=== PATIENT | male | born 1960 | race Caucasian/White ===

== ENCOUNTER 2021-06-06 14:33 | Inpatient (IN) | payer OTHER ==
[~2021-06-06] VITALS: Ht 182.9 cm; Wt 106.0 kg
[~2021-06-06 14:33] MED LIST: BUPR100T8 PO; CETI10TA74 PO; CRESTOR20 MG PO; LISI20TA18 PO
[2021-06-06 15:28] VITALS: BP 146/77
[2021-06-06 16:44] LABS: BILIRUBIN,URINE NEGATIVE (NEG); CLARITY,URINE CLEAR; COLOR,URINE YELLOW; NITRITE,URINE NEGATIVE (NEG); PROTEIN,URINE 30 mg/dL (NEG-TRACE); UROBILINOGEN,URINE 0.2 mg/dL (0.2 mg/dL)
[2021-06-06 16:53] LABS: BACTERIA,URINE 0 /HPF (0-FEW); RBC,URINE 0 /HPF (0-2)
[2021-06-06] MEDS ORDERED: guaiFENesin DM 200MG/20MG 10 ML SYRUP PO PRN (17:15)
[2021-06-06] MEDS ORDERED: ONDANSETRON PF 4 MG/2 ML VIAL. IVP PRN (17:15)
[2021-06-06] MEDS ORDERED: traMADol 50 MG TABLET PO PRN (17:15)
[2021-06-06] MEDS ORDERED: GLUC100018 PO (17:35)
[2021-06-06] MEDS ORDERED: MULT-246 PO (17:39)
[2021-06-06] MEDS ORDERED: tumeric PO (17:39)
[2021-06-06] MEDS ORDERED: MECL12.582 PO (17:39)
[2021-06-06] MEDS ORDERED: OMEG1CAP38 PO (17:39)
[2021-06-06] MEDS: ACETAMINOPHEN 325 MG TABLET. PO PRN (18:12)
[2021-06-06] MEDS ORDERED: IV NORMAL SALINE 1000ML BAG 1,000 ML IV ONE ×2 (18:15)
[2021-06-06 18:19] LABS: BASO % 0 % (0-3); EOS % 0 % (0-3); HEMATOCRIT 39.7 % (39.0-53.0); HEMOGLOBIN 13.3 g/dL (13.0-17.5); LYMPH # 0.6 x10^3/uL (1.0-4.8); LYMPH % 5 % (24-48); MEAN CORPUSCULAR HEMOGLOBIN 30 pg (25-35); MEAN CORPUSCULAR HGB CONC 34 g/dL (31-37); MEAN CORPUSCULAR VOLUME 88 fL (79-100); MONO # 0.9 x10^3/uL (0.0-1.1); MONO % 7 % (0-9); NEUT # 10.7 x10^3/uL (1.8-7.7); NEUT % 88 % (31-73); PLATELET COUNT 219 x10^3/uL (140-400); RED BLOOD COUNT 4.51 x10^6/uL (4.30-5.70); RED CELL DISTRIBUTION WIDTH 13.1 % (11.5-14.5); WHITE BLOOD COUNT 12.2 x10^3/uL (4.0-11.0)
[2021-06-06 18:30] LABS: ALBUMIN 3.5 g/dL (3.4-5.0); ALBUMIN/GLOBULIN RATIO 0.9 (1.0-1.7); C-REACTIVE PROTEIN 164.8 mg/L (0-3.3); CALCIUM 8.5 mg/dL (8.5-10.1); CREATININE 1.1 mg/dL (0.7-1.3); GFR 68.8; POTASSIUM 4.1 mmol/L (3.5-5.1); TOTAL BILIRUBIN 0.5 mg/dL (0.2-1.0); TOTAL PROTEIN 7.6 g/dL (6.4-8.2)
--- NOTE | 2021-06-06 18:33 | PDOC1 ---
History and Physical Date of Admission Date of Admission DATE: 06/06/21 TIME: 18:01 Identification/Chief Complaint Chief Complaint Fevers, positive blood cultures Source Source: Patient History of Present Illness History of Present Illness Mr Swartz is a 60 yo male with PMHx OA, HTN, HLD, BPH, prior nephrolithiasis who comes as a direct admit for fevers and positive blood cultures. Patient awoke on 06/05/2021 with a headache and fever and chills and dysuria and urinary frequency and contacted his primary care physician Dr. Harper and came to the office was found with a fever of 101.4 F and had 2 separate blood cultures and urinalysis drawn urinalysis was abnormal with positive leukoesterase. Patient was given a shot of intramuscular Rocephin and instructed to take Tylenol and return to the office for an additional shot of Rocephin 06/06/21, but in the intervening time blood cultures returned positive 2 out of 3 bottles each set of culture positive for gram-positive cocci. Patient did still have a fever of 101.1 F today. On initial evaluation in the hospital his temperature is 100.6 F and he does have some chills. Prostate is enlarged on exam but not painful. He further notes that he does have an intermittent headache and some nasal drainage. No shortness of breath or chest pain. No recent travel no recent sick contacts. 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 Lives at home with his 3 dogs, a "few" cats, a bearded dragon, and rabbits. Does not smoke drink or use illicit drugs. Notes that he is fully vaccinated against COVID-19 and has had his booster. He notes that prior to his episode of fever and chills on 06/05/2021 he was having increased urinary frequency his also notes this. Over the last 6 years he has had 2 ED for urinary tract infections and has been treated outpatient twice by urology for urinary tract infections and treated for nephrolithiasis. Past Medical History Cardiovascular: HTN, Hyperlipidemia Renal/: Benign prostatic enlarg. Past Surgical History Past Surgical History surgery 4th and 5th fingers right hand Past Surgical History: Arthroscopy (Bilateral shoulder, bilateral knees), Tonsillectomy (1966), Other (Cystoscopy) Family History Family History: Hypertension Social History Smoke: No ALCOHOL: none Drugs: None Current Medications Current Medications Current Medications Acetaminophen (Tylenol) 650 mg PRN Q6HRS PRN PO MILD PAIN / TEMP > 100.3'F; Start 06/06/21 at 17:15 Ondansetron HCl (Zofran) 4 mg PRN Q4HRS PRN IVP NAUSEA/VOMITING; Start 06/06/21 at 17:15 Guaifenesin (Robitussin Dm) 10 ml PRN Q6HRS PRN PO COUGH; Start 06/06/21 at 17:15 Tramadol HCl (Ultram) 50 mg PRN Q6HRS PRN PO PAIN; Start 06/06/21 at 17:15 Bupropion HCl (Wellbutrin Sr) 100 mg DAILYWBKFT PO ; Start 06/07/21 at 08:00 Cetirizine HCl (ZyrTEC) 10 mg DAILY PO ; Start 06/07/21 at 09:00 Lisinopril (Prinivil) 20 mg DAILY PO ; Start 06/07/21 at 09:00 Atorvastatin Calcium (Lipitor) 80 mg QHS PO ; Start 06/06/21 at 21:00 Zolpidem Tartrate (Ambien) 5 mg PRN QHS PRN PO INSOMNIA; Start 06/06/21 at 18:00; Status UNV Active Scripts Active Reported [tumeric] Unknown Dose PO DAILY Meclizine Hcl 12.5 Mg Tablet 1 Tab PO DAILY Multi-Vitamin Daily (Multivitamin) 1 Each Tablet 1 Tab PO DAILY 30 Days [place] 3 Fish Oil Softgel ([place]-3 Fatty Acids/Fish Oil) 1 Each Capsule.dr 1 Each PO DAILY Glucosamine (Glucosamine Sulfate 2KCL) 1,000 Mg Tablet 1,000 Mg PO DAILY Bupropion Hcl Sr (Bupropion Hcl) 100 Mg Tablet.er 1 Tab PO DAILYWBKFT Zyrtec (Cetirizine Hcl) 10 Mg Tablet 1 Tab PO DAILY Crestor (Rosuvastatin Calcium) 20 Mg Tablet 1 Tab PO DAILY Lisinopril 20 Mg Tablet 1 Tab PO DAILY Allergies Allergies: Coded Allergies: No Known Drug Allergies (Unverified , 04/04/15) ROS General: YES: Chills, Night Sweats, Fatigue, Malaise; No: Appetite, Other PSYCHOLOGICAL ROS: YES: Anxiety; No: Behavioral Disorder, Concentration difficultie, Decreased libido, Depression, Disorientation, Hallucinations, Hostility, Irritablity, Memory difficulties, Mood Swings, Obsessive thoughts, Physical abuse, Sexual abuse, Sleep disturbances, Suicidal ideation, Other Eyes: No Blurry vision, No Decreased vision, No Double vision, No Dry eyes, No Excessive tearing, No Eye Pain, No Itchy Eyes, No Loss of vision, No Photophobia, No Scotomata, No Uses contacts, No Uses glasses, No Other HEENT: YES: Heacaches; No: Visual Changes, Hearing change, Nasal congestion, Nasal discharge, Oral lesions, Sinus pain, Sore Throat, Epistaxis, Sneezing, Snoring, Tinnitus, Vertigo, Vocal changes, Other ALLERGY AND IMMUNOLOGY: No: Hives, Insect Bite Sensitivity, Itchy/Watery Eyes, Nasal Congestion, Post Nasal Drip, Seasonal Allergies, Other Hematological and Lymphatic: No: Bleeding Problems, Blood Clots, Blood T ransfusions, Brusing, Night Sweats, Pallor, Swollen Lymph Nodes, Other ENDOCRINE: No: Breast Changes, Galactorrhea, Hair Pattern Changes, Hot Flashes, Malaise/lethargy, Mood Swings, Palpitations, Polydipsia/polyuria, Skin Changes, Temperature Intolerance, Unexpected Weight Changes, Other Breast: No New/Changing Breast Lumps, No Nipple changes, No Nipple discharge, No Other Respiratory: No: Cough, Hemoptysis, Orthopnea, Pleuritic Pain, Shortness of breath, SOB with excertion, Sputum Changes, Stridor, Tachypnea, Wheezing, Other Gastrointestinal: Yes Nausea; No Vomiting, No Abdominal Pain, No Diarrhea, No Constipation, No Melena, No Hematochezia, No Other Genitourinary: YES Dysuria, YES Frequency; No Incontinence, No Hematuria, No Retention, No Discharge, No Urgency, No Pain, No Flank Pain, No Other, No , No , No , No , No , No , No Musculoskeletal: No Gait Disturbance, No Joint Pain, No Joint Stiffness, No Joint Swelling, No Muscle Pain, No Muscular Weakness, No Pain In:, No Swelling In:, No Other Neurological: No Behavorial Changes, No Bowel/Bladder ControlChng, No Confusion, No Dizziness, No Gait Disturbance, No Headaches, No Impaired Coord/balance, No Memory Loss, No Numbness/Tingling, No Seizures, No Speech Problems, No Tremors, No Visual Changes, No Weakness, No Other Skin: No Dry Skin, No Eczema, No Hair Changes, No Lumps, No Mole Changes, No Mottling, No Nail Changes, No Pruritus, No Rash, No Skin Lesion Changes, No Other, No Acne Physical Exam General: Alert, Oriented X3, Cooperative, mild distress HEENT: Atraumatic, PERRLA, EOMI, Mucous membr. moist/pink Lungs: Clear to auscultation, Normal air movement Heart: S1S2, RRR, no thrills, no rubs, no gallops, no murmurs Abdomen: Normal bowel sounds, Soft, No hepatosplenomegaly, No masses, Other (suprapubic tenderness) Male Genitals Exam: high riding prostate Extremities: No clubbing, No cyanosis, No edema, Normal pulses, No tenderness/swelling Skin: No rashes, No breakdown, No significant lesion Neuro: Normal gait, Normal speech, Strength at 5/5 X4 ext, Normal tone, Sensation intact, Cranial nerves 3-12 NL, Reflexes 2+ Psych/Mental Status: Mental status NL, Mood NL Vitals Vitals Vital Signs Date Time Temp Pulse Resp B/P (MAP) Pulse Ox O2 Delivery O2 Flow Rate FiO2 06/06/21 16:33 100.6 100.6 06/06/21 16:09 Room Air 06/06/21 15:28 95 16 146/77 (100) 98 Labs Labs Laboratory Tests Test 06/06/21 16:00 Urine Collection Type Unknown Urine Color Yellow Urine Clarity Clear Urine pH 6.0 (<5.0-8.0) Urine Specific [place] 1.015 (1.000-1.030) Urine Protein 30 mg/dL (NEG-TRACE) Urine Glucose (UA) Negative mg/dL (NEG) Urine Ketones (Stick) Negative mg/dL (NEG) Urine Blood Negative (NEG) Urine Nitrite Negative (NEG) Urine Bilirubin Negative (NEG) Urine Urobilinogen Dipstick 0.2 mg/dL (0.2 mg/dL) Urine Leukocyte Esterase Negative (NEG) Urine RBC 0 /HPF (0-2) Urine WBC 1-4 /HPF (0-4) Urine Bacteria 0 /HPF (0-FEW) Urine Mucus Slight /LPF Laboratory Tests Test 06/06/21 16:00 Urine Collection Type Unknown Urine Color Yellow Urine Clarity Clear Urine pH 6.0 (<5.0-8.0) Urine Specific [place] 1.015 (1.000-1.030) Urine Protein 30 mg/dL (NEG-TRACE) Urine Glucose (UA) Negative mg/dL (NEG) Urine Ketones (Stick) Negative mg/dL (NEG) Urine Blood Negative (NEG) Urine Nitrite Negative (NEG) Urine Bilirubin Negative (NEG) Urine Urobilinogen Dipstick 0.2 mg/dL (0.2 mg/dL) Urine Leukocyte Esterase Negative (NEG) Urine RBC 0 /HPF (0-2) Urine WBC 1-4 /HPF (0-4) Urine Bacteria 0 /HPF (0-FEW) Urine Mucus Slight /LPF VTE Prophylaxis Ordered VTE Prophylaxis Devices: No VTE Pharmacological Prophylaxi: Yes Assessment/Plan Assessment/Plan Gram positive bacteremia - Repeat BC, UA/cs. He already had IM rocephin may not still be positive. Consult ID for recs. F/u results from Dr. Harper , F: [id number] Sepsis - with fever and tachycardia, normotensive, will give weight based fluid bolus, empiric antibiotics. Given GPC on blood cultures and likely urine source this may be enterococcus. Dysuria - BPH meds, fluids. repeat ua/culture, f/u outpatient culture results. Will obtain creatinine and then CT abdomen/pelvis Headaches - with sinus drainage, will r/o COVID 19 with PCR, likely related to sepsis OA - prn tylenol HTN - cont lisinopril HLD - cont crestor, new med BPH - on no outpatient meds Prior nephrolithiasis - none recently FEN - regular diet PPX - lovenox FULL CODE Dispo - inpatient for bacteremia Justifications for Admission Other Justification MARQUIS MACDONALD MD Jun 06, 2021 18:33
[2021-06-06 19:00] VITALS: BP 119/68
[2021-06-06] MEDS ORDERED: VANCOMYCIN 1.75 GM in IV NORMAL SALINE 500ML BAG 500 ML IV ONE (19:00)
[2021-06-06] MEDS ORDERED: cefTRIAXone IV Push 1 GM VIAL. IVP ONE (19:00)
[2021-06-06] MEDS: ATORVASTATIN CALCIUM 40 MG TABLET. PO SCH (21:06)
[2021-06-06] MEDS: TAMSULOSIN 0.4 MG CAP.ER.24H. PO SCH (21:06)
[2021-06-06 23:00] VITALS: BP 127/63
[2021-06-07 03:00] VITALS: BP 108/66
[2021-06-07] MEDS: ACETAMINOPHEN 325 MG TABLET. PO PRN ×3 (03:21→21:39)
[2021-06-07 07:00] VITALS: BP 131/60
[2021-06-07] MEDS ORDERED: buPROPion SR 100 MG TABLET.SA. PO SCH (08:00)
[2021-06-07] MEDS ORDERED: CONTRAST GIVEN. MC PRN (08:15)
[2021-06-07] MEDS ORDERED: IOHEXOL 300 MG/ML 100ML VIAL. IV ONE (08:15)
[2021-06-07] MEDS: CETIRIZINE HCL 10 MG TABLET. PO SCH (10:11)
[2021-06-07] MEDS: LISINOPRIL 20 MG TABLET PO SCH (10:12)
[2021-06-07 10:20] VITALS: BP 117/64
--- NOTE | 2021-06-07 10:49 | NUR ---
SW following. Discussed with RN, pt from home, room air, regular diet. ID following. RN advised no SW needs at this time. SW will continue to follow.
--- NOTE | 2021-06-07 12:17 | RAD ---
EXAM: CT Abdomen and Pelvis with IV contrast CLINICAL HISTORY: Reason: Fever,chills, dysuria, suprapubic pain, concern for intrabdominal infection COMPARISON: none TECHNIQUE: Helical CT of the abdomen and pelvis was performed following the administration of intrave nous contrast. Axial, coronal and sagittal reformatted images were generated. PQRS compliance statement - One or more of the following individualized dose reduction techniques wer e utilized for this study: 1. Automated exposure control 2. Adjustment of the mA and/or kV according to patient size 3. Use of iterative reconstruction technique FINDINGS: Lower Chest: Linear and bandlike opacities lower lobes likely scarring/atelectasis. Abdomen and Pelvis: Hypodense hepatic dome lesion is again seen measuring 1.9 cm previously 2.5 cm. Hepatomegaly. Hepatic hypoattenuation of the liver. Gallbladder is normal. No biliary dilatation. Pancreas, spleen and adr enal glands are unremarkable. Symmetric nephrograms. Subcentimeter hypodense right interpolar and right upper pole renal lesion too small to accurately characterize. No hydronephrosis. No hydroureter. There is infiltration about the bladder and prostate with edematous appearance of the prostate. Moderate colonic stool content is seen. Appendix is normal. No small or large bowel dilatation. No ankur wel obstruction. Aorta is normal in caliber. No abdominal or pelvic ascites. No abdominal or pelvic lymphadenopathy. Bones: Hip joint degenerative changes are seen. Degenerative changes of spine are seen. IMPRESSION: 1. Edematous appearance of the prostate with associated infiltration of the prostate and bladder, co nsistent with prostatitis and cystitis. 2. Appendix is normal. 3. No bowel obstruction. 4. Hepatic dome lesion has mildly decreased in size, can be correlated with more recent prior imagin g if available. If further characterization is required MRI would provide additional details. 5. Hepatomegaly. Hepatic hypoattenuation, fatty liver. Electronically signed by: Fahad Enriquez MD (06/07/2021 12:15 PM) [id number]
--- NOTE | 2021-06-07 14:00 | PDOC ---
[employer] PROGRESS NOTE Date of Service DOS: DATE: 06/07/21 TIME: 13:58 Chief Complaint Chief Complaint Gram positive bacteremia - Repeat BC, UA/cs. He already had IM rocephin may not still be positive. Consult ID for recs. F/u results from Dr. Harper , F: [id number] Sepsis - with fever and tachycardia, normotensive, will give weight based fluid bolus, empiric antibiotics. Given GPC on blood cultures and likely urine source this may be enterococcus. Dysuria - BPH meds, fluids. repeat ua/culture, f/u outpatient culture results. Will obtain creatinine and then CT abdomen/pelvis Headaches - with sinus drainage, will r/o COVID 19 with PCR, likely related to sepsis OA - prn tylenol HTN - cont lisinopril HLD - cont crestor, new med BPH - on no outpatient meds Prior nephrolithiasis - none recently FEN - regular diet PPX - lovenox FULL CODE Dispo - inpatient for bacteremia History of Present Illness History of Present Illness Mr Swartz is a 60 yo male with PMHx OA, HTN, HLD, BPH, prior nephrolithiasis who comes as a direct admit for fevers and positive blood cultures. Patient awoke on 06/05/2021 with a headache and fever and chills and dysuria and urinary frequency and contacted his primary care physician Dr. Harper and came to the office was found with a fever of 101.4 F and had 2 separate blood cultures and urinalysis drawn urinalysis was abnormal with positive leukoesterase. Patient was given a shot of intramuscular Rocephin and instructed to take Tylenol and return to the office for an additional shot of Rocephin 06/06/21, but in the intervening time blood cultures returned positive 2 out of 3 bottles each set of culture positive for gram-positive cocci. Patient did still have a fever of 101.1 F today. On initial evaluation in the hospital his temperature is 100.6 F and he does have some chills. Prostate is enlarged on exam but not painful. He further notes that he does have an intermittent headache and some nasal drainage. No shortness of breath or chest pain. No recent travel no recent sick contacts. 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 Lives at home with his 3 dogs, a "few" cats, a bearded dragon, and rabbits. Does not smoke drink or use illicit drugs. Notes that he is fully vaccinated against COVID-19 and has had his booster. He notes that prior to his episode of fever and chills on 06/05/2021 he was having increased urinary frequency his also notes this. Over the last 6 years he has had 2 ED for urinary tract infections and has been treated outpatient twice by urology for urinary tract infections and treated for nephrolithiasis. CT of the pelvis with some hepatomegaly, and edematous appearance of the prostate with associated infiltration of the prostate and bladder, consistent with prostatitis and cystitis. 06/07: Fever curve improved. Urinated a lot overnight after IV fluids. Did not sleep well. Currently he still having some dysuria. No chest pain or shortness of breath. Consulted with infectious disease. Vitals/I&O Vitals/I&O: Vital Signs Date Time Temp Pulse Resp B/P (MAP) Pulse Ox O2 Delivery O2 Flow Rate FiO2 06/07/21 10:20 98.0 83 18 117/64 (81) 92 Room Air 98.0 I & O 06/06/21 06/06/21 06/07/21 15:00 23:00 07:00 Intake Total 120 ml 240 ml Output Total 300 ml 600 ml Balance -180 ml -360 ml Physical Exam General: Alert, Oriented X3, Cooperative, mild distress Abdomen: Normal bowel sounds, Soft, No hepatosplenomegaly, No masses, Other (suprapubic tenderness) Extremities: No clubbing, No cyanosis, No edema, Normal pulses, No tendernes s/swelling Skin: No rashes, No breakdown, No significant lesion Labs Labs: Laboratory Tests Test 06/06/21 16:00 06/06/21 18:00 Urine Collection Type Unknown Urine Color Yellow Urine Clarity Clear Urine pH 6.0 (<5.0-8.0) Urine Specific [place] 1.015 (1.000-1.030) Urine Protein 30 mg/dL (NEG-TRACE) Urine Glucose (UA) Negative mg/dL (NEG) Urine Ketones (Stick) Negative mg/dL (NEG) Urine Blood Negative (NEG) Urine Nitrite Negative (NEG) Urine Bilirubin Negative (NEG) Urine Urobilinogen Dipstick 0.2 mg/dL (0.2 mg/dL) Urine Leukocyte Esterase Negative (NEG) Urine RBC 0 /HPF (0-2) Urine WBC 1-4 /HPF (0-4) Urine Bacteria 0 /HPF (0-FEW) Urine Mucus Slight /LPF White Blood Count 12.2 x10^3/uL (4.0-11.0) Red Blood Count 4.51 x10^6/uL (4.30-5.70) Hemoglobin 13.3 g/dL (13.0-17.5) Hematocrit 39.7 % (39.0-53.0) Mean Corpuscular Volume 88 fL (79-100) Mean Corpuscular Hemoglobin 30 pg (25-35) Mean Corpuscular Hemoglobin Concent 34 g/dL (31-37) Red Cell Distribution Width 13.1 % (11.5-14.5) Platelet Count 219 x10^3/uL (140-400) Neutrophils (%) (Auto) 88 % (31-73) Lymphocytes (%) (Auto) 5 % (24-48) Monocytes (%) (Auto) 7 % (0-9) Eosinophils (%) (Auto) 0 % (0-3) Basophils (%) (Auto) 0 % (0-3) Neutrophils # (Auto) 10.7 x10^3/uL (1.8-7.7) Lymphocytes # (Auto) 0.6 x10^3/uL (1.0-4.8) Monocytes # (Auto) 0.9 x10^3/uL (0.0-1.1) Eosinophils # (Auto) 0.0 x10^3/uL (0.0-0.7) Basophils # (Auto) 0.0 x10^3/uL (0.0-0.2) Erythrocyte Sedimentation Rate 34 (0-15) Sodium Level 138 mmol/L (136-145) Potassium Level 4.1 mmol/L (3.5-5.1) Chloride Level 98 mmol/L (98-107) Carbon Dioxide Level 27 mmol/L (21-32) Anion Gap 13 (6-14) Blood Urea Nitrogen 13 mg/dL (8-26) Creatinine 1.1 mg/dL (0.7-1.3) Estimated GFR (Cockcroft-Gault) 68.8 BUN/Creatinine Ratio 12 (6-20) Glucose Level 127 mg/dL (70-99) Calcium Level 8.5 mg/dL (8.5-10.1) Total Bilirubin 0.5 mg/dL (0.2-1.0) Aspartate Amino Transf (AST/SGOT) 28 U/L (15-37) Alanine Aminotransferase (ALT/SGPT) 32 U/L (16-63) Alkaline Phosphatase 128 U/L (46-116) C-Reactive Protein, Quantitative 164.8 mg/L (0-3.3) Total Protein 7.6 g/dL (6.4-8.2) Albumin 3.5 g/dL (3.4-5.0) Albumin/Globulin Ratio 0.9 (1.0-1.7) Comment Review of Relevant I have reviewed the following items uzma (where applicable) has been applied. Medications: Current Medications Medications (Trade) Dose Ordered Sig/Luc Route PRN Reason Start Time Stop Time Status Last Admin Dose Admin Acetaminophen (Tylenol) 650 mg PRN Q6HRS PRN PO MILD PAIN / TEMP > 100.3'F 06/06/21 17:15 06/07/21 03:21 Cetirizine HCl (ZyrTEC) 10 mg DAILY PO 06/07/21 09:00 06/07/21 10:11 Lisinopril (Prinivil) 20 mg DAILY PO 06/07/21 09:00 06/07/21 10:12 Atorvastatin Calcium (Lipitor) 80 mg QHS PO 06/06/21 21:00 06/06/21 21:06 Sodium Chloride 1,000 ml @ 125 mls/hr 1X ONCE IV 06/06/21 18:15 06/07/21 02:14 DC 06/07/21 01:10 Sodium Chloride 1,000 ml @ 1,000 mls/hr 1X ONCE IV 06/06/21 18:15 06/06/21 19:14 DC 06/06/21 19:13 Ceftriaxone Sodium (Rocephin) 1 gm 1X ONCE IVP 06/06/21 19:00 06/06/21 19:01 DC 06/06/21 20:12 Vancomycin HCl 1.75 gm/Sodium Chloride 500 ml @ 250 mls/hr 1X ONCE IV 06/06/21 19:00 06/06/21 20:59 DC 06/06/21 19:13 Tamsulosin HCl (Flomax) 0.4 mg QHS PO 06/06/21 21:00 06/06/21 21:06 Iohexol (Omnipaque 300 Mg/ml) 75 ml 1X ONCE IV 06/07/21 08:15 06/07/21 08:16 DC 06/07/21 10:30 Images: Lower Chest: Linear and bandlike opacities lower lobes likely scarring/atelectasis. Abdomen and Pelvis: Hypodense hepatic dome lesion is again seen measuring 1.9 cm previously 2.5 cm. Hepatomegaly. Hepatic hypoattenuation of the liver. Gallbladder is normal. No biliary dilatation. Pancreas, spleen and adrenal glands are unremarkable. Symmetric nephrograms. Subcentimeter hypodense right interpolar and right upper pole renal lesion too small to accurately characterize. No hydronephrosis. No hydroureter. There is infiltration about the bladder and prostate with edematous appearance of the prostate. Moderate colonic stool content is seen. Appendix is normal. No small or large bowel dilatation. No bowel obstruction. Aorta is normal in caliber. No abdominal or pelvic ascites. No abdominal or pelvic lymphadenopathy. Bones: Hip joint degenerative changes are seen. Degenerative changes of spine are seen. IMPRESSION: 1. Edematous appearance of the prostate with associated infiltration of the prostate and bladder, consistent with prostatitis and cystitis. 2. Appendix is normal. 3. No bowel obstruction. 4. Hepatic dome lesion has mildly decreased in size, can be correlated with mor e recent prior imaging if available. If further characterization is required MRI would provide additional details. 5. Hepatomegaly. Hepatic hypoattenuation, fatty liver. Justifications for Admission Other Justification MARQUIS MACDONALD MD Jun 07, 2021 14:00
[2021-06-07 15:00] VITALS: BP 116/51
[2021-06-07] MEDS: DAPTOmycin (GENERIC) IVPB 500 MG in IV NORMAL SALINE 50ML 50 ML IV SCH (15:16)
[2021-06-07] MEDS: cefTRIAXone IV Push 2 GM VIAL. IVP SCH (15:16)
[2021-06-07 19:00] VITALS: BP 106/62
--- NOTE | 2021-06-07 20:24 | CONS ---
DATE OF CONSULTATION: 06/07/2021 REQUESTING PHYSICIAN: Kevin Feliz MD REASON FOR CONSULTATION: Blood culture positive. HISTORY OF PRESENT ILLNESS: This is a 60-year-old gentleman who went to see Dr. Harper about 3-day history of fever and chills and had urinary frequency and burning with urination. The patient in the office, had a 101.4 temperature. Patient's testing was done and the blood culture turned positive, hence he was asked to come in direct admission. The patient denies any nausea, vomiting. Denies any flank pain. The patient has been having urinary symptoms like hesitancy and frequency for a while and the patient has been told that he has enlarged prostate, but he has not had any surgery or procedures done. Has not taken any antibiotics for a long time. The patient has been started on vancomycin here. He received a dose of ceftriaxone. The patient also received an IM dose of ceftriaxone in Dr. Harper's office. PAST MEDICAL HISTORY: Positive for benign prostatic hypertrophy, hypertension, hyperlipidemia, obesity, has had finger surgery and arthroscopic surgeries done for the shoulder. SOCIAL HISTORY: Negative for smoking, occasional alcohol use, no drug use. ALLERGIES: No known drug allergies. CURRENT MEDICATIONS: Reviewed. REVIEW OF SYSTEMS: As in HPI. All other systems reviewed are negative. PHYSICAL EXAMINATION: GENERAL: Alert, oriented gentleman, not in distress. VITAL SIGNS: Stable. Temperature 98 with a T-max of 100.6, pulse 83, respirations 18, blood pressure 117/64. HEENT: Both pupils are round and reacting. No conjunctival lesion, no lesion in the mouth. NECK: Supple, no JVP, no lymphadenopathy. LUNGS: Clear. HEART: S1, S2, regular. ABDOMEN: Soft, nontender, no organomegaly. EXTREMITIES: No edema, cyanosis. No CVA tenderness. LUNGS: Clear. HEART: S1, S2, regular. ABDOMEN: Soft, nontender, no organomegaly. EXTREMITIES: No edema, cyanosis. SKIN: Unremarkable. There are no peripheral stigmata for endocarditis. NEUROLOGIC: The patient is alert, awake, and appropriate. No focal neurologic deficit. LABORATORY DATA: White count is 12.2. Sed rate is 34. BUN and creatinine is normal. CRP is 164. His urinalysis here is unremarkable. Abdominal pelvic CT showed edematous appearance of the prostate with associated infiltration of the prostate and bladder consistent with prostatitis and cystitis. Hepatic dome lesion has mildly decreased in size from the previous one. Hepatomegaly. IMPRESSION: 1. Blood culture positive outside, I do not have yet. In fact, I just got a fax from Dr. Harper's office. At that time, his WBC in the blood was 14,000. Creatinine is 0.99 and I do not have yet blood culture results. PSA was 61.5. Reportedly, blood culture positive with gram-positive cocci. 2. Fever and chills and night sweats. 3. Prostatitis. 4. Hypertension. 5. Hyperlipidemia. 6. Obesity. RECOMMENDATIONS: Change vancomycin to daptomycin. Supportive care, use also Rocephin and will wait for the culture results as well as cultures were done here. Discussion with Dr. Feliz done. Thank you very much, Dr. Feliz, for giving me opportunity to participate in this patient's care. GAVI DR: Vinicio TID: [id number]
[2021-06-07] MEDS: LACTOBACILLUS RHAMNOSUS GG 1 CAPSULE. PO SCH (21:39)
[2021-06-07] MEDS: GABAPENTIN 300 MG CAPSULE. PO SCH (21:39)
[2021-06-07] MEDS: ATORVASTATIN CALCIUM 40 MG TABLET. PO SCH (21:40)
[2021-06-07] MEDS: TAMSULOSIN 0.4 MG CAP.ER.24H. PO SCH (21:40)
[2021-06-07] MEDS: ZOLPIDEM 5 MG TABLET. PO PRN (21:40)
[2021-06-07] MEDS: ENOXAPARIN 40 MG/0.4 ML SYRINGE. SQ SCH (21:44)
[2021-06-07 23:00] VITALS: BP 111/61
[2021-06-08 03:00] VITALS: BP 110/68
[2021-06-08 07:00] VITALS: BP 107/69
[2021-06-08] MEDS: LACTOBACILLUS RHAMNOSUS GG 1 CAPSULE. PO SCH ×2 (08:38→21:08)
[2021-06-08] MEDS: CETIRIZINE HCL 10 MG TABLET. PO SCH (08:38)
[2021-06-08 08:39] LABS: CALCIUM 8.5 mg/dL (8.5-10.1); CREATININE 0.9 mg/dL (0.7-1.3); GFR 86.7; POTASSIUM 3.9 mmol/L (3.5-5.1)
[2021-06-08 08:49] LABS: BASO % 1 % (0-3); EOS # 0.2 x10^3/uL (0.0-0.7); EOS % 2 % (0-3); HEMATOCRIT 35.8 % (39.0-53.0); HEMOGLOBIN 12.1 g/dL (13.0-17.5); LYMPH # 1.3 x10^3/uL (1.0-4.8); LYMPH % 15 % (24-48); MEAN CORPUSCULAR HEMOGLOBIN 30 pg (25-35); MEAN CORPUSCULAR HGB CONC 34 g/dL (31-37); MEAN CORPUSCULAR VOLUME 87 fL (79-100); MONO # 0.9 x10^3/uL (0.0-1.1); MONO % 11 % (0-9); NEUT # 5.9 x10^3/uL (1.8-7.7); NEUT % 71 % (31-73); PLATELET COUNT 256 x10^3/uL (140-400); RED BLOOD COUNT 4.11 x10^6/uL (4.30-5.70); RED CELL DISTRIBUTION WIDTH 13.4 % (11.5-14.5); WHITE BLOOD COUNT 8.4 x10^3/uL (4.0-11.0)
[2021-06-08] MEDS: ACETAMINOPHEN 325 MG TABLET. PO PRN ×2 (08:54→21:08)
[2021-06-08] MEDS: LISINOPRIL 20 MG TABLET PO SCH (09:00)
[2021-06-08 10:45] VITALS: BP 123/69
--- NOTE | 2021-06-08 13:06 | PDOC ---
[employer] PROGRESS NOTE Date of Service DOS: DATE: 06/08/21 TIME: 13:05 Chief Complaint Chief Complaint Gram positive bacteremia - Repeat BC, UA/cs. He already had IM rocephin may not still be positive. Consult ID for recs. F/u results from Dr. Harper , F: [id number] Sepsis - with fever and tachycardia, normotensive, will give weight based fluid bolus, empiric antibiotics. Given GPC on blood cultures and likely urine source this may be enterococcus. Dysuria - BPH meds, fluids. repeat ua/culture, f/u outpatient culture results. Will obtain creatinine and then CT abdomen/pelvis Headaches - with sinus drainage, will r/o COVID 19 with PCR, likely related to sepsis OA - prn tylenol HTN - cont lisinopril HLD - cont crestor, new med BPH - on no outpatient meds Prior nephrolithiasis - none recently FEN - regular diet PPX - lovenox FULL CODE Dispo - inpatient for bacteremia History of Present Illness History of Present Illness Mr Swartz is a 60 yo male with PMHx OA, HTN, HLD, BPH, prior nephrolithiasis who comes as a direct admit for fevers and positive blood cultures. Patient awoke on 06/05/2021 with a headache and fever and chills and dysuria and urinary frequency and contacted his primary care physician Dr. Harper and came to the office was found with a fever of 101.4 F and had 2 separate blood cultures and urinalysis drawn urinalysis was abnormal with positive leukoesterase. Patient was given a shot of intramuscular Rocephin and instructed to take Tylenol and return to the office for an additional shot of Rocephin 06/06/21, but in the intervening time blood cultures returned positive 2 out of 3 bottles each set of culture positive for gram-positive cocci. Patient did still have a fever of 101.1 F today. On initial evaluation in the hospital his temperature is 100.6 F and he does have some chills. Prostate is enlarged on exam but not painful. He further notes that he does have an intermittent headache and some nasal drainage. No shortness of breath or chest pain. No recent travel no recent sick contacts. 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 Lives at home with his 3 dogs, a "few" cats, a bearded dragon, and rabbits. Does not smoke drink or use illicit drugs. Notes that he is fully vaccinated against COVID-19 and has had his booster. He notes that prior to his episode of fever and chills on 06/05/2021 he was having increased urinary frequency his also notes this. Over the last 6 years he has had 2 ED for urinary tract infections and has been treated outpatient twice by urology for urinary tract infections and treated for nephrolithiasis. CT of the pelvis with some hepatomegaly, and edematous appearance of the prostate with associated infiltration of the prostate and bladder, consistent with prostatitis and cystitis. 06/07: Fever curve improved. Urinated a lot overnight after IV fluids. Did not sleep well. Currently he still having some dysuria. No chest pain or shortness of breath. Consulted with infectious disease. 06/08/2021 No acute events overnight. Patient seen sitting comfortably in recliner using his iPad. Still has some headaches. AF and VSS in the last 24 hours. Repeat blood cultures are negative to date. Pending final speciation and sensitivities for antibiotics. Patient states that he does not notice any difference with starting Flomax. Will wait for inflammation of his prostate to see if his symptoms improved. After resolution of prostatitis and his symptoms are still the same may consider to start finasteride. Patient's chart, labs, images were reviewed and discussed with RN Vitals/I&O Vitals/I&O: Vital Signs Date Time Temp Pulse Resp B/P (MAP) Pulse Ox O2 Delivery O2 Flow Rate FiO2 06/08/21 10:45 98.0 75 16 123/69 (87) 94 Room Air 98.0 I & O 06/07/21 06/07/21 06/08/21 15:00 23:00 07:00 Intake Total 250 ml Output Total 300 ml Balance -50 ml Physical Exam General: Alert, Oriented X3, Cooperative, mild distress Abdomen: Normal bowel sounds, Soft, No hepatosplenomegaly, No masses, Other (suprapubic tenderness) Extremities: No clubbing, No cyanosis, No edema, Normal pulses, No tenderness/swelling Skin: No rashes, No breakdown, No significant lesion Labs Labs: Laboratory Tests Test 06/08/21 07:40 White Blood Count 8.4 x10^3/uL (4.0-11.0) Red Blood Count 4.11 x10^6/uL (4.30-5.70) Hemoglobin 12.1 g/dL (13.0-17.5) Hematocrit 35.8 % (39.0-53.0) Mean Corpuscular Volume 87 fL (79-100) Mean Corpuscular Hemoglobin 30 pg (25-35) Mean Corpuscular Hemoglobin Concent 34 g/dL (31-37) Red Cell Distribution Width 13.4 % (11.5-14.5) Platelet Count 256 x10^3/uL (140-400) Neutrophils (%) (Auto) 71 % (31-73) Lymphocytes (%) (Auto) 15 % (24-48) Monocytes (%) (Auto) 11 % (0-9) Eosinophils (%) (Auto) 2 % (0-3) Basophils (%) (Auto) 1 % (0-3) Neutrophils # (Auto) 5.9 x10^3/uL (1.8-7.7) Lymphocytes # (Auto) 1.3 x10^3/uL (1.0-4.8) Monocytes # (Auto) 0.9 x10^3/uL (0.0-1.1) Eosinophils # (Auto) 0.2 x10^3/uL (0.0-0.7) Basophils # (Auto) 0.0 x10^3/uL (0.0-0.2) Sodium Level 142 mmol/L (136-145) Potassium Level 3.9 mmol/L (3.5-5.1) Chloride Level 103 mmol/L (98-107) Carbon Dioxide Level 28 mmol/L (21-32) Anion Gap 11 (6-14) Blood Urea Nitrogen 14 mg/dL (8-26) Creatinine 0.9 mg/dL (0.7-1.3) Estimated GFR (Cockcroft-Gault) 86.7 Glucose Level 113 mg/dL (70-99) Calcium Level 8.5 mg/dL (8.5-10.1) Creatine Kinase 198 U/L (39-308) Comment Review of Relevant I have reviewed the following items uzma (where applicable) has been applied. Medications: Current Medications Medications (Trade) Dose Ordered Sig/Luc Route PRN Reason Start Time Stop Time Status Last Admin Dose Admin Daptomycin 500 mg/ Sodium Chloride 50 ml @ 100 mls/hr Q24H IV 06/07/21 15:00 06/07/21 15:16 Ceftriaxone Sodium (Rocephin) 2 gm Q24H IVP 06/07/21 15:00 06/07/21 15:16 Enoxaparin Sodium (Lovenox 40mg Syringe) 40 mg Q24H SQ 06/07/21 21:00 06/07/21 21:44 Lactobacillus Rhamnosus (Culturelle) 1 cap BID PO 06/07/21 21:00 06/08/21 08:38 Gabapentin (Neurontin) 300 mg QHS PO 06/07/21 21:00 06/07/21 21:39 Justifications for Admission Other Justification АННА VILLAGRAN MD Jun 08, 2021 13:06
--- NOTE | 2021-06-08 13:39 | PDOC ---
Infectious Disease Note Subjective Subjective Feeling much better ROS ROS No nausea vomiting diarrhea or fever Vital Sign Vital Signs Vital Signs Date Time Temp Pulse Resp B/P (MAP) Pulse Ox O2 Delivery O2 Flow Rate FiO2 06/08/21 10:45 98.0 75 16 123/69 (87) 94 Room Air 98.0 Physical Exam PHYSICAL EXAM GENERAL: Alert, oriented gentleman, not in distress. VITAL SIGNS: Stable. HEENT: Both pupils are round and reacting. No conjunctival lesion, no lesion in the mouth. NECK: Supple, no JVP, no lymphadenopathy. LUNGS: Clear. HEART: S1, S2, regular. ABDOMEN: Soft, nontender, no organomegaly. EXTREMITIES: No edema, cyanosis. No CVA tenderness. LUNGS: Clear. HEART: S1, S2, regular. ABDOMEN: Soft, nontender, no organomegaly. EXTREMITIES: No edema, cyanosis. SKIN: Unremarkable. There are no peripheral stigmata for endocarditis. NEUROLOGIC: The patient is alert, awake, and appropriate. No focal neurologic deficit. Labs Lab Laboratory Tests Test 06/08/21 07:40 White Blood Count 8.4 x10^3/uL (4.0-11.0) Red Blood Count 4.11 x10^6/uL (4.30-5.70) Hemoglobin 12.1 g/dL (13.0-17.5) Hematocrit 35.8 % (39.0-53.0) Mean Corpuscular Volume 87 fL (79-100) Mean Corpuscular Hemoglobin 30 pg (25-35) Mean Corpuscular Hemoglobin Concent 34 g/dL (31-37) Red Cell Distribution Width 13.4 % (11.5-14.5) Platelet Count 256 x10^3/uL (140-400) Neutrophils (%) (Auto) 71 % (31-73) Lymphocytes (%) (Auto) 15 % (24-48) Monocytes (%) (Auto) 11 % (0-9) Eosinophils (%) (Auto) 2 % (0-3) Basophils (%) (Auto) 1 % (0-3) Neutrophils # (Auto) 5.9 x10^3/uL (1.8-7.7) Lymphocytes # (Auto) 1.3 x10^3/uL (1.0-4.8) Monocytes # (Auto) 0.9 x10^3/uL (0.0-1.1) Eosinophils # (Auto) 0.2 x10^3/uL (0.0-0.7) Basophils # (Auto) 0.0 x10^3/uL (0.0-0.2) Sodium Level 142 mmol/L (136-145) Potassium Level 3.9 mmol/L (3.5-5.1) Chloride Level 103 mmol/L (98-107) Carbon Dioxide Level 28 mmol/L (21-32) Anion Gap 11 (6-14) Blood Urea Nitrogen 14 mg/dL (8-26) Creatinine 0.9 mg/dL (0.7-1.3) Estimated GFR (Cockcroft-Gault) 86.7 Glucose Level 113 mg/dL (70-99) Calcium Level 8.5 mg/dL (8.5-10.1) Creatine Kinase 198 U/L (39-308) Micro Microbiology 06/06/21 Blood Culture - Preliminary, Resulted NO GROWTH AFTER 1 DAY 06/06/21 Urine Culture - Final, Complete Objective Assessment IMPRESSION: 1. Blood culture positive outside, I do not have yet. In fact, I just got a fax from Dr. Harper's office. At that time, his WBC in the blood was 14,000. Creatinine is 0.99 and I do not have yet blood culture results. PSA was 61.5. Reportedly, blood culture positive with gram-positive cocci. 2. Fever and chills and night sweats. 3. Prostatitis. 4. Hypertension. 5. Hyperlipidemia. 6. Obesity. Plan Plan of Care Continue antibiotics RICK KU MD Jun 08, 2021 13:39
[2021-06-08 15:00] VITALS: BP 131/82
[2021-06-08] MEDS: DAPTOmycin (GENERIC) IVPB 500 MG in IV NORMAL SALINE 50ML 50 ML IV SCH (16:09)
[2021-06-08] MEDS: cefTRIAXone IV Push 2 GM VIAL. IVP SCH (16:09)
[2021-06-08 19:00] VITALS: BP 135/71
[2021-06-08] MEDS: ENOXAPARIN 40 MG/0.4 ML SYRINGE. SQ SCH (21:07)
[2021-06-08] MEDS: ATORVASTATIN CALCIUM 40 MG TABLET. PO SCH (21:08)
[2021-06-08] MEDS: ZOLPIDEM 5 MG TABLET. PO PRN (21:08)
[2021-06-08] MEDS: GABAPENTIN 300 MG CAPSULE. PO SCH (21:08)
[2021-06-08] MEDS: TAMSULOSIN 0.4 MG CAP.ER.24H. PO SCH (21:08)
[2021-06-08 23:00] VITALS: BP 111/58
[2021-06-09 03:00] VITALS: BP 100/61
[2021-06-09 07:00] VITALS: BP 129/80
[2021-06-09 07:23] LABS: BASO % 1 % (0-3); EOS # 0.3 x10^3/uL (0.0-0.7); EOS % 4 % (0-3); HEMATOCRIT 39.1 % (39.0-53.0); HEMOGLOBIN 12.8 g/dL (13.0-17.5); LYMPH # 1.8 x10^3/uL (1.0-4.8); LYMPH % 24 % (24-48); MEAN CORPUSCULAR HEMOGLOBIN 29 pg (25-35); MEAN CORPUSCULAR HGB CONC 33 g/dL (31-37); MEAN CORPUSCULAR VOLUME 87 fL (79-100); MONO # 0.8 x10^3/uL (0.0-1.1); MONO % 10 % (0-9); NEUT # 4.6 x10^3/uL (1.8-7.7); NEUT % 61 % (31-73); PLATELET COUNT 287 x10^3/uL (140-400); RED BLOOD COUNT 4.48 x10^6/uL (4.30-5.70); RED CELL DISTRIBUTION WIDTH 13.7 % (11.5-14.5); WHITE BLOOD COUNT 7.5 x10^3/uL (4.0-11.0)
[2021-06-09 07:30] LABS: CREATININE 1.1 mg/dL (0.7-1.3); GFR 68.8; POTASSIUM 4.2 mmol/L (3.5-5.1)
[2021-06-09] MEDS: CETIRIZINE HCL 10 MG TABLET. PO SCH (08:26)
[2021-06-09] MEDS: LACTOBACILLUS RHAMNOSUS GG 1 CAPSULE. PO SCH ×2 (08:26→20:56)
[2021-06-09] MEDS: LISINOPRIL 20 MG TABLET PO SCH (08:26)
--- NOTE | 2021-06-09 10:15 | PDOC ---
[employer] PROGRESS NOTE Date of Service DOS: DATE: 06/09/21 TIME: 10:13 Chief Complaint Chief Complaint Gram positive bacteremia - Repeat BC, UA/cs. He already had IM rocephin may not still be positive. Consult ID for recs. F/u results from Dr. Harper , F: [id number] Sepsis - with fever and tachycardia, normotensive, will give weight based fluid bolus, empiric antibiotics. Given GPC on blood cultures and likely urine source this may be enterococcus. Dysuria - BPH meds, fluids. repeat ua/culture, f/u outpatient culture results. Will obtain creatinine and then CT abdomen/pelvis Headaches - with sinus drainage, will r/o COVID 19 with PCR, likely related to sepsis OA - prn tylenol HTN - cont lisinopril HLD - cont crestor, new med BPH - on no outpatient meds Prior nephrolithiasis - none recently FEN - regular diet PPX - lovenox FULL CODE Dispo - inpatient for bacteremia History of Present Illness History of Present Illness Mr Swartz is a 60 yo male with PMHx OA, HTN, HLD, BPH, prior nephrolithiasis who comes as a direct admit for fevers and positive blood cultures. Patient awoke on 06/05/2021 with a headache and fever and chills and dysuria and urinary frequency and contacted his primary care physician Dr. Harper and came to the office was found with a fever of 101.4 F and had 2 separate blood cultures and urinalysis drawn urinalysis was abnormal with positive leukoesterase. Patient was given a shot of intramuscular Rocephin and instructed to take Tylenol and return to the office for an additional shot of Rocephin 06/06/21, but in the intervening time blood cultures returned positive 2 out of 3 bottles each set of culture positive for gram-positive cocci. Patient did still have a fever of 101.1 F today. On initial evaluation in the hospital his temperature is 100.6 F and he does have some chills. Prostate is enlarged on exam but not painful. He further notes that he does have an intermittent headache and some nasal drainage. No shortness of breath or chest pain. No recent travel no recent sick contacts. 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 Lives at home with his 3 dogs, a "few" cats, a bearded dragon, and rabbits. Does not smoke drink or use illicit drugs. Notes that he is fully vaccinated against COVID-19 and has had his booster. He notes that prior to his episode of fever and chills on 06/05/2021 he was having increased urinary frequency his also notes this. Over the last 6 years he has had 2 ED for urinary tract infections and has been treated outpatient twice by urology for urinary tract infections and treated for nephrolithiasis. CT of the pelvis with some hepatomegaly, and edematous appearance of the prostate with associated infiltration of the prostate and bladder, consistent with prostatitis and cystitis. 06/07: Fever curve improved. Urinated a lot overnight after IV fluids. Did not sleep well. Currently he still having some dysuria. No chest pain or shortness of breath. Consulted with infectious disease. 06/08/2021 No acute events overnight. Patient seen sitting comfortably in recliner using his iPad. Still has some headaches. AF and VSS in the last 24 hours. Repeat blood cultures are negative to date. Pending final speciation and sensitivities for antibiotics. Patient states that he does not notice any difference with starting Flomax. Will wait for inflammation of his prostate to see if his symptoms improved. After resolution of prostatitis and his symptoms are still the same may consider to start finasteride. Patient's chart, labs, images were reviewed and discussed with RN 06/09/2021 No acute events overnight. Patient seen examined bedside patient using cell phone. No complaints at this time. Afebrile and vital signs stable in the last 24 hours. Still pending since SNS from initial blood culture. ID following. Continue with IV antibiotics. Patient's chart, labs, images were reviewed and discussed with RN Vitals/I&O Vitals/I&O: Vital Signs Date Time Temp Pulse Resp B/P (MAP) Pulse Ox O2 Delivery O2 Flow Rate FiO2 06/09/21 08:26 72 129/80 06/09/21 08:00 Room Air 06/09/21 07:00 97.9 18 95 97.9 Physical Exam Physical Exam: GENERAL: Alert, oriented gentleman, not in distress. VITAL SIGNS: Stable. HEENT: Both pupils are round and reacting. No conjunctival lesion, no lesion in the mouth. NECK: Supple, no JVP, no lymphadenopathy. LUNGS: Clear. HEART: S1, S2, regular. ABDOMEN: Soft, nontender, no organomegaly. EXTREMITIES: No edema, cyanosis. No CVA tenderness. LUNGS: Clear. HEART: S1, S2, regular. ABDOMEN: Soft, nontender, no organomegaly. EXTREMITIES: No edema, cyanosis. SKIN: Unremarkable. There are no peripheral stigmata for endocarditis. NEUROLOGIC: The patient is alert, awake, and appropriate. No focal neurologic deficit. General: Alert, Oriented X3, Cooperative, mild distress Abdomen: Normal bowel sounds, Soft, No hepatosplenomegaly, No masses, Other (suprapubic tenderness) Extremities: No clubbing, No cyanosis, No edema, Normal pulses, No tenderness/swelling Skin: No rashes, No breakdown, No significant lesion Labs Labs: Laboratory Tests Test 06/09/21 06:15 White Blood Count 7.5 x10^3/uL (4.0-11.0) Red Blood Count 4.48 x10^6/uL (4.30-5.70) Hemoglobin 12.8 g/dL (13.0-17.5) Hematocrit 39.1 % (39.0-53.0) Mean Corpuscular Volume 87 fL (79-100) Mean Corpuscular Hemoglobin 29 pg (25-35) Mean Corpuscular Hemoglobin Concent 33 g/dL (31-37) Red Cell Distribution Width 13.7 % (11.5-14.5) Platelet Count 287 x10^3/uL (140-400) Neutrophils (%) (Auto) 61 % (31-73) Lymphocytes (%) (Auto) 24 % (24-48) Monocytes (%) (Auto) 10 % (0-9) Eosinophils (%) (Auto) 4 % (0-3) Basophils (%) (Auto) 1 % (0-3) Neutrophils # (Auto) 4.6 x10^3/uL (1.8-7.7) Lymphocytes # (Auto) 1.8 x10^3/uL (1.0-4.8) Monocytes # (Auto) 0.8 x10^3/uL (0.0-1.1) Eosinophils # (Auto) 0.3 x10^3/uL (0.0-0.7) Basophils # (Auto) 0.0 x10^3/uL (0.0-0.2) Sodium Level 141 mmol/L (136-145) Potassium Level 4.2 mmol/L (3.5-5.1) Chloride Level 103 mmol/L (98-107) Carbon Dioxide Level 26 mmol/L (21-32) Anion Gap 12 (6-14) Blood Urea Nitrogen 12 mg/dL (8-26) Creatinine 1.1 mg/dL (0.7-1.3) Estimated GFR (Cockcroft-Gault) 68.8 Glucose Level 108 mg/dL (70-99) Calcium Level 9.0 mg/dL (8.5-10.1) Comment Review of Relevant I have reviewed the following items uzma (where applicable) has been applied. Justifications for Admission Other Justification АННА VILLAGRAN MD Jun 09, 2021 10:14
[2021-06-09 11:00] VITALS: BP 115/71
--- NOTE | 2021-06-09 12:35 | PDOC ---
Infectious Disease Note Subjective: Subjective Feeling much better Vital Signs: Vital Signs Vital Signs Date Time Temp Pulse Resp B/P (MAP) Pulse Ox O2 Delivery O2 Flow Rate FiO2 06/09/21 11:00 98.1 76 18 115/71 (86) 94 Room Air 98.1 Physical Exam: PHYSICAL EXAM GENERAL: Alert, oriented gentleman, not in distress. HEENT: Both pupils are round and reacting. No conjunctival lesion, no lesion in the mouth. NECK: Supple, no JVP, no lymphadenopathy. LUNGS: Clear. HEART: S1, S2, regular. ABDOMEN: Soft, nontender, no organomegaly. EXTREMITIES: No edema, cyanosis. No CVA tenderness. LUNGS: Clear. HEART: S1, S2, regular. ABDOMEN: Soft, nontender, no organomegaly. EXTREMITIES: No edema, cyanosis. SKIN: Unremarkable. There are no peripheral stigmata for endocarditis. NEUROLOGIC: The patient is alert, awake, and appropriate. No focal neurologic deficit. Medications: Inpatient Meds: Medications reviewed. Labs: Lab Laboratory Tests Test 06/09/21 06:15 White Blood Count 7.5 x10^3/uL (4.0-11.0) Red Blood Count 4.48 x10^6/uL (4.30-5.70) Hemoglobin 12.8 g/dL (13.0-17.5) Hematocrit 39.1 % (39.0-53.0) Mean Corpuscular Volume 87 fL (79-100) Mean Corpuscular Hemoglobin 29 pg (25-35) Mean Corpuscular Hemoglobin Concent 33 g/dL (31-37) Red Cell Distribution Width 13.7 % (11.5-14.5) Platelet Count 287 x10^3/uL (140-400) Neutrophils (%) (Auto) 61 % (31-73) Lymphocytes (%) (Auto) 24 % (24-48) Monocytes (%) (Auto) 10 % (0-9) Eosinophils (%) (Auto) 4 % (0-3) Basophils (%) (Auto) 1 % (0-3) Neutrophils # (Auto) 4.6 x10^3/uL (1.8-7.7) Lymphocytes # (Auto) 1.8 x10^3/uL (1.0-4.8) Monocytes # (Auto) 0.8 x10^3/uL (0.0-1.1) Eosinophils # (Auto) 0.3 x10^3/uL (0.0-0.7) Basophils # (Auto) 0.0 x10^3/uL (0.0-0.2) Sodium Level 141 mmol/L (136-145) Potassium Level 4.2 mmol/L (3.5-5.1) Chloride Level 103 mmol/L (98-107) Carbon Dioxide Level 26 mmol/L (21-32) Anion Gap 12 (6-14) Blood Urea Nitrogen 12 mg/dL (8-26) Creatinine 1.1 mg/dL (0.7-1.3) Estimated GFR (Cockcroft-Gault) 68.8 Glucose Level 108 mg/dL (70-99) Calcium Level 9.0 mg/dL (8.5-10.1) Objective: Assessment: 1. Blood culture positive outside, I do not have yet. In fact, I just got a fax from Dr. Harper's office. At that time, his WBC in the blood was 14,000. Creatinine is 0.99 and I do not have yet blood culture results. PSA was 61.5. Reportedly, blood culture positive with gram-positive cocci. ID still pending per discussion with RN 2. Fever and chills and night sweats. 3. Prostatitis 4. Hypertension. 5. Hyperlipidemia. 6. Obesity. Plan: Plan of Care ID of gram-positive cocci in blood culture still pending per discussion with RN as of today RN will call tomorrow to obtain blood culture results Continue ceftriaxone and daptomycin repeat bc neg here Monitor labs Continue supportive care Discussed with AURA HOU MD Jun 09, 2021 12:35
[2021-06-09] MEDS: ACETAMINOPHEN 325 MG TABLET. PO PRN ×2 (13:15→20:57)
[2021-06-09 15:00] VITALS: BP 124/81
[2021-06-09] MEDS: DAPTOmycin (GENERIC) IVPB 500 MG in IV NORMAL SALINE 50ML 50 ML IV SCH (16:21)
[2021-06-09] MEDS: cefTRIAXone IV Push 2 GM VIAL. IVP SCH (16:21)
[2021-06-09 19:00] VITALS: BP 128/76
[2021-06-09] MEDS: GABAPENTIN 300 MG CAPSULE. PO SCH (20:56)
[2021-06-09] MEDS: ZOLPIDEM 5 MG TABLET. PO PRN (20:56)
[2021-06-09] MEDS: TAMSULOSIN 0.4 MG CAP.ER.24H. PO SCH (20:56)
[2021-06-09] MEDS: ATORVASTATIN CALCIUM 40 MG TABLET. PO SCH (20:56)
[2021-06-09] MEDS: ENOXAPARIN 40 MG/0.4 ML SYRINGE. SQ SCH (21:01)
[2021-06-09 23:00] VITALS: BP 109/72
[2021-06-10 03:00] VITALS: BP 112/68
[2021-06-10 07:00] VITALS: BP 132/63
[2021-06-10 07:39] LABS: BASO # 0.1 x10^3/uL (0.0-0.2); BASO % 1 % (0-3); EOS # 0.2 x10^3/uL (0.0-0.7); EOS % 3 % (0-3); HEMATOCRIT 38.7 % (39.0-53.0); HEMOGLOBIN 12.9 g/dL (13.0-17.5); LYMPH # 1.8 x10^3/uL (1.0-4.8); LYMPH % 25 % (24-48); MEAN CORPUSCULAR HEMOGLOBIN 29 pg (25-35); MEAN CORPUSCULAR HGB CONC 33 g/dL (31-37); MEAN CORPUSCULAR VOLUME 88 fL (79-100); MONO # 0.7 x10^3/uL (0.0-1.1); MONO % 9 % (0-9); NEUT # 4.4 x10^3/uL (1.8-7.7); NEUT % 61 % (31-73); PLATELET COUNT 311 x10^3/uL (140-400); RED BLOOD COUNT 4.41 x10^6/uL (4.30-5.70); RED CELL DISTRIBUTION WIDTH 13.3 % (11.5-14.5); WHITE BLOOD COUNT 7.2 x10^3/uL (4.0-11.0)
[2021-06-10 07:42] LABS: GFR 76.7; POTASSIUM 4.6 mmol/L (3.5-5.1)
[2021-06-10] MEDS: LACTOBACILLUS RHAMNOSUS GG 1 CAPSULE. PO SCH ×2 (09:04→21:00)
[2021-06-10] MEDS: CETIRIZINE HCL 10 MG TABLET. PO SCH (09:04)
[2021-06-10] MEDS: LISINOPRIL 20 MG TABLET PO SCH (09:04)
[2021-06-10 11:00] VITALS: BP 129/76
--- NOTE | 2021-06-10 11:22 | NUR ---
LAURY following. Discussed with RN, pt from home, room air, regular diet, COVID-19 negative. KOMAL following - awaiting blood culture outcomes. LAURY will continue to follow. Addendum: 06/10/21 at 1615 by SHAKEEL SCHAEFFER Pt needing IV abx at home. [facility]UR[facility] faxed referral to [facility] who [facility]. Per [facility], [facility] needs [facility] request for service [facility] completed by physician, awaiting [facility] to email to LAURY to leave for ID physician to complete. PICC line placement likely tomorrow. LAURY will continue to follow. Addendum: 06/10/21 at 1636 by SHKAEEL SCHAEFFER [facility] request for [facility] left on pt chart. RN notified.
--- NOTE | 2021-06-10 13:03 | PDOC ---
Infectious Disease Note Subjective: Subjective Patient without complaints Vital Signs: Vital Signs Vital Signs Date Time Temp Pulse Resp B/P (MAP) Pulse Ox O2 Delivery O2 Flow Rate FiO2 06/10/21 11:00 97.9 76 20 129/76 (93) 97 Room Air 97.9 Physical Exam: PHYSICAL EXAM GENERAL: Alert, oriented gentleman, not in distress. HEENT: Both pupils are round and reacting. No conjunctival lesion, no lesion in the mouth. NECK: Supple, no JVP, no lymphadenopathy. LUNGS: Clear. HEART: S1, S2, regular. ABDOMEN: Soft, nontender, no organomegaly. EXTREMITIES: No edema, cyanosis. No CVA tenderness. LUNGS: Clear. HEART: S1, S2, regular. ABDOMEN: Soft, nontender, no organomegaly. EXTREMITIES: No edema, cyanosis. SKIN: Unremarkable. There are no peripheral stigmata for endocarditis. NEUROLOGIC: The patient is alert, awake, and appropriate. No focal neurologic deficit. Medications: Inpatient Meds: Medications reviewed. Labs: Lab Laboratory Tests Test 06/10/21 06:59 White Blood Count 7.2 x10^3/uL (4.0-11.0) Red Blood Count 4.41 x10^6/uL (4.30-5.70) Hemoglobin 12.9 g/dL (13.0-17.5) Hematocrit 38.7 % (39.0-53.0) Mean Corpuscular Volume 88 fL (79-100) Mean Corpuscular Hemoglobin 29 pg (25-35) Mean Corpuscular Hemoglobin Concent 33 g/dL (31-37) Red Cell Distribution Width 13.3 % (11.5-14.5) Platelet Count 311 x10^3/uL (140-400) Neutrophils (%) (Auto) 61 % (31-73) Lymphocytes (%) (Auto) 25 % (24-48) Monocytes (%) (Auto) 9 % (0-9) Eosinophils (%) (Auto) 3 % (0-3) Basophils (%) (Auto) 1 % (0-3) Neutrophils # (Auto) 4.4 x10^3/uL (1.8-7.7) Lymphocytes # (Auto) 1.8 x10^3/uL (1.0-4.8) Monocytes # (Auto) 0.7 x10^3/uL (0.0-1.1) Eosinophils # (Auto) 0.2 x10^3/uL (0.0-0.7) Basophils # (Auto) 0.1 x10^3/uL (0.0-0.2) Sodium Level 142 mmol/L (136-145) Potassium Level 4.6 mmol/L (3.5-5.1) Chloride Level 103 mmol/L (98-107) Carbon Dioxide Level 29 mmol/L (21-32) Anion Gap 10 (6-14) Blood Urea Nitrogen 11 mg/dL (8-26) Creatinine 1.0 mg/dL (0.7-1.3) Estimated GFR (Cockcroft-Gault) 76.7 Glucose Level 106 mg/dL (70-99) Calcium Level 9.0 mg/dL (8.5-10.1) Objective: Assessment: 1. Enterococcus fecalis bacterema 2/[address] Harper's office. repeat neg here,uc neg, CT ABDOMEN/PELVIS 2. Fever and chills and night sweats. resolved 3. Prostatitis 4. Hypertension. 5. Hyperlipidemia. 6. Obesity. 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 Thursday labs CBC/BUN/creatinine/CPK . Fax results to [phone] Follow-up ID clinic in 2 weeks, June 25 at 1:30 PM ph [phone] Patient is requesting social service to assist with discharge antibiotics through [facility] Discussed with AURA HOU MD Jun 10, 2021 13:03
[2021-06-10 15:00] VITALS: BP 123/75
[2021-06-10] MEDS: cefTRIAXone IV Push 2 GM VIAL. IVP SCH (15:39)
[2021-06-10] MEDS: DAPTOmycin (GENERIC) IVPB 500 MG in IV NORMAL SALINE 50ML 50 ML IV SCH (15:39)
[2021-06-10 19:00] VITALS: BP 136/76
[2021-06-10] MEDS: ATORVASTATIN CALCIUM 40 MG TABLET. PO SCH (20:59)
[2021-06-10] MEDS: ZOLPIDEM 5 MG TABLET. PO PRN (21:00)
[2021-06-10] MEDS: TAMSULOSIN 0.4 MG CAP.ER.24H. PO SCH (21:00)
[2021-06-10] MEDS: ENOXAPARIN 40 MG/0.4 ML SYRINGE. SQ SCH (21:00)
[2021-06-10] MEDS: GABAPENTIN 300 MG CAPSULE. PO SCH (21:00)
[2021-06-10 23:00] VITALS: BP 116/67
[2021-06-11 03:00] VITALS: BP 107/57
[2021-06-11 07:00] VITALS: BP 113/77
[2021-06-11] MEDS: LACTOBACILLUS RHAMNOSUS GG 1 CAPSULE. PO SCH (08:51)
[2021-06-11] MEDS: CETIRIZINE HCL 10 MG TABLET. PO SCH (08:51)
[2021-06-11] MEDS: LISINOPRIL 20 MG TABLET PO SCH (08:52)
[2021-06-11 11:00] VITALS: BP 120/68
--- NOTE | 2021-06-11 12:25 | NUR ---
LAURY following. Discussed with RN, pt getting PICC line placed today. Pt covered at 100% for home abx with [facility]. Yeison Sandoval) will meet with pt this afternoon for teaching. LAURY faxed face sheet to [facility] to determine if they are in network with pt's insurance. LAURY will continue to follow. Addendum: 06/11/21 at 1438 by SHAKEEL SCHAEFFER [facility] can provide nursing care. Awaiting home health orders and PICC line placement for discharge. Dr. Melgar notified.
--- NOTE | 2021-06-11 12:35 | PDOC ---
Infectious Disease Note Subjective: Subjective Patient without complaints Vital Signs: Vital Signs Vital Signs Date Time Temp Pulse Resp B/P (MAP) Pulse Ox O2 Delivery O2 Flow Rate FiO2 06/11/21 11:00 97.9 68 18 120/68 (85) 96 Room Air 97.9 Physical Exam: PHYSICAL EXAM GENERAL: Alert, oriented gentleman, not in distress. HEENT: Both pupils are round and reacting. No conjunctival lesion, no lesion in the mouth. NECK: Supple, no JVP, no lymphadenopathy. LUNGS: Clear. HEART: S1, S2, regular. ABDOMEN: Soft, nontender, no organomegaly. EXTREMITIES: No edema, cyanosis. No CVA tenderness. LUNGS: Clear. HEART: S1, S2, regular. ABDOMEN: Soft, nontender, no organomegaly. EXTREMITIES: No edema, cyanosis. SKIN: Unremarkable. There are no peripheral stigmata for endocarditis. NEUROLOGIC: The patient is alert, awake, and appropriate. No focal neurologic deficit. PICC line right upper extremity clean Medications: Inpatient Meds: Medications reviewed. Objective: Assessment: 1. Enterococcus fecalis bacterema 2/[address] Harper's office. repeat neg here,uc neg, CT ABDOMEN/PELVIS 2. Fever and chills and night sweats. resolved 3. Prostatitis 4. Hypertension. 5. Hyperlipidemia. 6. Obesity. 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 Thursday labs CBC/BUN/creatinine/CPK . Fax results to [phone] Follow-up ID clinic in 2 weeks, June 25 at 1:30 PM ph [phone] Discussed with on phone per patient's request at length All questions answered AURA KU MD Jun 11, 2021 12:35
[2021-06-11] MEDS ORDERED: TAMS0.4C97 PO (13:02)
[2021-06-11] MEDS ORDERED: DAPT350V IV (13:04)
[2021-06-11] MEDS ORDERED: CEFTRIAXONE SODIUM IVP (13:04)
[2021-06-11] MEDS ORDERED: LIDOCAINE WITH 8.4% SOD BICARB 3 ML DISP.SYRIN. INJ ONE (13:30)
--- NOTE | 2021-06-11 14:03 | PDOC ---
[employer] PROGRESS NOTE Date of Service DOS: DATE: 06/11/21 TIME: 14:02 Chief Complaint Chief Complaint Gram positive bacteremia - Repeat BC, UA/cs. He already had IM rocephin may not still be positive. Consult ID for recs. F/u results from Dr. Harper , F: [id number] Sepsis - with fever and tachycardia, normotensive, will give weight based fluid bolus, empiric antibiotics. Given GPC on blood cultures and likely urine source this may be enterococcus. Dysuria - BPH meds, fluids. repeat ua/culture, f/u outpatient culture results. Will obtain creatinine and then CT abdomen/pelvis Headaches - with sinus drainage, will r/o COVID 19 with PCR, likely related to sepsis OA - prn tylenol HTN - cont lisinopril HLD - cont crestor, new med BPH - on no outpatient meds Prior nephrolithiasis - none recently FEN - regular diet PPX - lovenox FULL CODE Dispo - inpatient for bacteremia History of Present Illness History of Present Illness Mr Swartz is a 60 yo male with PMHx OA, HTN, HLD, BPH, prior nephrolithiasis who comes as a direct admit for fevers and positive blood cultures. Patient awoke on 06/05/2021 with a headache and fever and chills and dysuria and urinary frequency and contacted his primary care physician Dr. Harper and came to the office was found with a fever of 101.4 F and had 2 separate blood cultures and urinalysis drawn urinalysis was abnormal with positive leukoesterase. Patient was given a shot of intramuscular Rocephin and instructed to take Tylenol and return to the office for an additional shot of Rocephin 06/06/21, but in the intervening time blood cultures returned positive 2 out of 3 bottles each set of culture positive for gram-positive cocci. Patient did still have a fever of 101.1 F today. On initial evaluation in the hospital his temperature is 100.6 F and he does have some chills. Prostate is enlarged on exam but not painful. He further notes that he does have an intermittent headache and some nasal drainage. No shortness of breath or chest pain. No recent travel no recent sick contacts. 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 Lives at home with his 3 dogs, a "few" cats, a bearded dragon, and rabbits. Does not smoke drink or use illicit drugs. Notes that he is fully vaccinated against COVID-19 and has had his booster. He notes that prior to his episode of fever and chills on 06/05/2021 he was having increased urinary frequency his also notes this. Over the last 6 years he has had 2 ED for urinary tract infections and has been treated outpatient twice by urology for urinary tract infections and treated for nephrolithiasis. CT of the pelvis with some hepatomegaly, and edematous appearance of the prostate with associated infiltration of the prostate and bladder, consistent with prostatitis and cystitis. 06/11/2021 PICC line today needs [facility] health, needs IV abx approved No acute events overnight. Patient seen examined bedside patient using cell phone. No complaints at this time. Afebrile and vital signs stable in the last 24 hours. blood culture reviewec. ID following. Continue with IV antibiotics. Patient's chart, labs, images were reviewed and discussed with RN Vitals/I&O Vitals/I&O: Vital Signs Date Time Temp Pulse Resp B/P (MAP) Pulse Ox O2 Delivery O2 Flow Rate FiO2 06/11/21 11:00 97.9 68 18 120/68 (85) 96 Room Air 97.9 I & O 06/10/21 06/10/21 06/11/21 15:00 23:00 07:00 Intake Total 120 ml 540 ml Balance 120 ml 540 ml Physical Exam Physical Exam: GENERAL: Alert, oriented gentleman, not in distress. HEENT: Both pupils are round and reacting. No conjunctival lesion, no lesion in the mouth. NECK: Supple, no JVP, no lymphadenopathy. LUNGS: Clear. HEART: S1, S2, regular. ABDOMEN: Soft, nontender, no organomegaly. EXTREMITIES: No edema, cyanosis. No CVA tenderness. LUNGS: Clear. HEART: S1, S2, regular. ABDOMEN: Soft, nontender, no organomegaly. EXTREMITIES: No edema, cyanosis. SKIN: Unremarkable. There are no peripheral stigmata for endocarditis. NEUROLOGIC: The patient is alert, awake, and appropriate. No focal neurologic deficit. General: Alert, Oriented X3, Cooperative, mild distress Abdomen: Normal bowel sounds, Soft, No hepatosplenomegaly, No masses, Other (suprapubic tenderness) Extremities: No clubbing, No cyanosis, No edema, Normal pulses, No tenderness/swelling Skin: No rashes, No breakdown, No significant lesion Comment Review of Relevant I have reviewed the following items zuma (where applicable) has been applied. Medications: Current Medications Medications (Trade) Dose Ordered Sig/Luc Route PRN Reason Start Time Stop Time Status Last Admin Dose Admin Lidocaine HCl (Buffered Lidocaine 1%) 3 ml 1X ONCE INJ 06/11/21 13:30 06/11/21 13:31 DC 06/11/21 13:31 Justifications for Admission Other Justification MAYNOR MORALES MD Jun 11, 2021 14:02
[2021-06-11] MEDS: DAPTOmycin (GENERIC) IVPB 500 MG in IV NORMAL SALINE 50ML 50 ML IV SCH (14:36)
--- NOTE | 2021-06-11 14:50 | SNU/HH DC ---
DISCHARGE WITH HOME HEALTH DISCHARGE INFORMATION: Discharge Date: Jun 11, 2021 Final Diagnosis: weakness, nausea bacteremia sepsis weakness BMI 32 Condition on Discharge: Stable CODE STATUS: Code Status: Full HOME HEALTH: Face to Face: I certify this patient is under my care and that I had a face to face encounter that meets the physician face to face encounter requirements with this patient on 06/11 Medical Complications: Other (bacterial infection) Jail For: Assess Cardiopulm Status RN For Eval/Treatment: Yes Physical Therapy For: Evalulation/Treatment Occupational Therapy For: Evaluation/Treatment Pt Meets Homebound Status: Unsteady balance w/ amb,, Unable to negotiate home POST DISCHARGE ORDERS: Activity Instructions for Disc: No restrictions, Activity as tolerated Weight Bearing Status after Di: No restrictions, As tolerated DIET AFTER DISCHARGE: Regular FOLLOW-UP: Follow up with: ID CERTIFICATION STATEMENT: Certification Statement: Certification Statement: Based on the above finding, I certify that this patient is confined to the home and needs intermittent long-term care, physical therapy and/or speech therapy, or continues to need occupational therapy.~ This patient is under my care, and I have initiated the establishment of the plan of care.~ This patient will be followed by myself or a community physician who will periodically review the plan of care. Home Meds Active Scripts Daptomycin (Daptomycin) 350 Mg Vial, 500 MG IV DAILY for bacteremia, #14 EACH Prov:MAYNOR MORALES MD 06/11/21 [cefTRIAXone IV Push] 2 GM VIAL No Conflict Check, 2 GM IVP Q24H, #14 EACH Prov:MAYNOR MORALES MD 06/11/21 Tamsulosin Hcl (FLOMAX) 0.4 Mg Cap.er.24h, 0.4 MG PO QHS for BPH, #30 CAP.SR Prov:MAYNOR MORALES MD 06/11/21 Reported Medications [tumeric] No Conflict Check, PO DAILY 06/06/21 Meclizine Hcl (MECLIZINE HCL) 12.5 Mg Tablet, 1 TAB PO DAILY for vertigo , #90 TAB 3 Refills 06/06/21 Multivitamin (MULTI-VITAMIN DAILY) 1 Each Tablet, 1 TAB PO DAILY for med list for 30 Days, #30 TAB 0 Refills 06/06/21 [place]-3 Fatty Acids/Fish Oil ([place] 3 FISH OIL SOFTGEL) 1 Each Capsule.dr, 1 EACH PO DAILY for med list, CAP 3/3/22 Glucosamine Sulfate 2KCL (GLUCOSAMINE) 1,000 Mg Tablet, 1000 MG PO DAILY for per med list , TAB 06/06/21 Bupropion Hcl (BUPROPION HCL SR) 100 Mg Tablet.er, 1 TAB PO DAILYWBKFT, #30 TAB 1 Refill 04/04/15 Cetirizine Hcl (ZYRTEC) 10 Mg Tablet, 1 TAB PO DAILY, #30 TAB 2 Refills 04/04/15 Rosuvastatin Calcium (CRESTOR) 20 Mg Tablet, 1 TAB PO DAILY, #30 TAB 5 Refills 04/04/15 Lisinopril (LISINOPRIL) 20 Mg Tablet, 1 TAB PO DAILY, #30 TAB 5 Refills 04/04/15 MAYNOR MORALES MD Jun 11, 2021 14:50
--- NOTE | 2021-06-11 14:53 | PDOC3 ---
Discharge Summary Visit Information Date of Admission: Jun 06, 2021 Date of Discharge: Jun 11, 2021 Final Diagnosis Gram positive bacteremia - Enterococcus fecalis bacterema Sepsis - with fever and tachycardia, normotensive, will give weight based fluid bolus, empiric antibiotics. Given GPC on blood cultures and likely urine source this may be enterococcus. Dysuria - BPH meds, fluids. repeat ua/culture, f/u outpatient culture results. Will obtain creatinine and then CT abdomen/pelvis Headaches - with sinus drainage, will r/o COVID 19 with PCR, likely related to sepsis OA - prn tylenol HTN - cont lisinopril HLD - cont crestor, new med BPH - on no outpatient meds Prior nephrolithiasis - none recently Brief Hospital Course Allergies Allergies Coded Allergies Type Severity Reaction Last Updated Verified No Known Drug Allergies 04/04/15 No Vital Signs Vital Signs Date Time Temp Pulse Resp B/P (MAP) Pulse Ox O2 Delivery O2 Flow Rate FiO2 06/11/21 11:00 97.9 68 18 120/68 (85) 96 Room Air 97.9 Lab Results Laboratory Tests Test 06/10/21 06:59 White Blood Count 7.2 x10^3/uL (4.0-11.0) Red Blood Count 4.41 x10^6/uL (4.30-5.70) Hemoglobin 12.9 g/dL (13.0-17.5) Hematocrit 38.7 % (39.0-53.0) Mean Corpuscular Volume 88 fL (79-100) Mean Corpuscular Hemoglobin 29 pg (25-35) Mean Corpuscular Hemoglobin Concent 33 g/dL (31-37) Red Cell Distribution Width 13.3 % (11.5-14.5) Platelet Count 311 x10^3/uL (140-400) Neutrophils (%) (Auto) 61 % (31-73) Lymphocytes (%) (Auto) 25 % (24-48) Monocytes (%) (Auto) 9 % (0-9) Eosinophils (%) (Auto) 3 % (0-3) Basophils (%) (Auto) 1 % (0-3) Neutrophils # (Auto) 4.4 x10^3/uL (1.8-7.7) Lymphocytes # (Auto) 1.8 x10^3/uL (1.0-4.8) Monocytes # (Auto) 0.7 x10^3/uL (0.0-1.1) Eosinophils # (Auto) 0.2 x10^3/uL (0.0-0.7) Basophils # (Auto) 0.1 x10^3/uL (0.0-0.2) Sodium Level 142 mmol/L (136-145) Potassium Level 4.6 mmol/L (3.5-5.1) Chloride Level 103 mmol/L (98-107) Carbon Dioxide Level 29 mmol/L (21-32) Anion Gap 10 (6-14) Blood Urea Nitrogen 11 mg/dL (8-26) Creatinine 1.0 mg/dL (0.7-1.3) Estimated GFR (Cockcroft-Gault) 76.7 Glucose Level 106 mg/dL (70-99) Calcium Level 9.0 mg/dL (8.5-10.1) Brief Hospital Course Mr Swartz is a 60 yo male with PMHx OA, HTN, HLD, BPH, prior nephrolithiasis who comes as a direct admit for fevers and positive blood cultures. Admti with headache and fever and chills and dysuria and urinary frequency and fever of 101.4 F and had 2 separate blood cultures blood cultures returned positive 2 out of 3 bottles each set of culture positive for gram-positive cocci. Prostate is enlarged on exam but not painful. 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 Discharge Information Condition at Discharge: Improved Follow Up: Weeks Disposition/Orders: D/C to Home w/ HH Scheduled Bupropion Hcl (Bupropion Hcl Sr) 100 Mg Tablet.er, 1 TAB PO DAILYWBKFT, #30 Ref 1 (Reported) Entered as Reported by: TOMMY MCCARTHY on 04/04/15830 Last Action: Continued on 06/06/211715 by MARQUIS MACDONALD MD Cetirizine Hcl (Zyrtec) 10 Mg Tablet, 1 TAB PO DAILY, #30 Ref 2 (Reported) Entered as Reported by: TOMMY MCCARTHY on 04/04/15830 Last Action: Continued on 06/06/211715 by MARQUIS MACDONALD MD Daptomycin (Daptomycin) 350 Mg Vial, 500 MG IV DAILY for bacteremia, #14 Prescribed by: MAYNOR MORALES on 06/11/21 1304 Glucosamine Sulfate 2KCL (Glucosamine) 1,000 Mg Tablet, 1,000 MG PO DAILY for per med list , (Reported) Entered as Reported by: ADALBERTO UBSH on 06/06/211734 Last Action: New Order on 06/06/211734 by ADALBERTO BUSH Lisinopril (Lisinopril) 20 Mg Tablet, 1 TAB PO DAILY, #30 Ref 5 (Reported) Entered as Reported by: TOMMY MCCARTHY on 04/04/15830 Last Action: Continued on 06/06/211715 by MARQUIS MACDONALD MD Meclizine Hcl (Meclizine Hcl) 12.5 Mg Tablet, 1 TAB PO DAILY for vertigo , #90 Ref 3 (Reported) Entered as Reported by: ADALBERTO BUSH on 06/06/211738 Last Action: New Order on 06/06/211738 by ADALBERTO BUSH Multivitamin (Multi-Vitamin Daily) 1 Each Tablet, 1 TAB PO DAILY for med list for 30 Days, #30 Ref 0 (Reported) Entered as Reported by: ADALBERTO BUSH on 06/06/211738 Last Action: New Order on 06/06/211738 by ADALBERTO BUSH [place]-3 Fatty Acids/Fish Oil ([place] 3 Fish Oil Softgel) 1 Each Capsule.dr, 1 EACH PO DAILY for med list, (Reported) Entered as Reported by: ADALBERTO BUSH on 06/06/211738 Last Action: New Order on 06/06/211738 by ADALBERTO BUSH Rosuvastatin Calcium (Crestor) 20 Mg Tablet, 1 TAB PO DAILY, #30 Ref 5 (Reported) Entered as Reported by: TOMMY MCCARTHY on 04/04/15830 Last Action: Converted on 06/06/211715 by MARQUIS MACDONALD MD Tamsulosin Hcl (Flomax) 0.4 Mg Cap.er.24h, 0.4 MG PO QHS for BPH, #30 Prescribed by: MAYNOR MORALES on 06/11/21 1302 [Ceftriaxone Sodium] 2 GM VIAL, 2 GM IVP Q24H, #14 Prescribed by: MAYNOR MORALES on 06/11/21 1304 [tumeric] , Unknown Dose PO DAILY, (Reported) Entered as Reported by: ADALBERTO BUSH on 06/06/211738 Last Taken: UNKNOWN on Unknown Date & Time Last Action: New Order on 06/06/211738 by ADALBERTO BUSH Patient Instructions Patient Instructions face to face 37 min total time Justicifation of Admission Dx: Justifications for Admission: Justification of Admission Dx: Yes MAYNOR MORALES MD Jun 11, 2021 14:53
[2021-06-11 15:00] VITALS: BP 137/69
--- NOTE | 2021-06-11 15:21 | RAD ---
Date: 06/11/2021 Exam: Fluoroscopic and ultrasound guided peripheral central venous catheter placement. Indication: Consent: The procedure was explained in its entirety to the patient or the patients designated repres entative by a member of the treatment team, including a discussion of the risks, benefits and commonl y accepted alternatives to the procedure, as well as the expected consequences of no therapy whatsoev er. Discussion of the risks included, but was not limited to, those that are most frequent and thos e that are rare but possibly severe or life-threatening, as well as the possibility of unforeseen com plications. Discussion: A timeout procedure was performed. The patient was prepped and draped using maximum sterile techniq ue, including the use of: Current guideline approved cutaneous antisepsis, a large sterile sheet to e stablish a sterile field. Additionally the flume ride operator wore a hat, mask, sterile gloves, a sterile gown during the procedure as well as practiced acceptable hand hygiene prior to placing the line. 1% lidoc carmen was administered for local anesthesia. Ultrasound evaluation demonstrates a patent right basilic vein. Reference images were saved in the edical record. The selected vein was accessed using micropuncture technique. A guidewire was advanced centrally. The PICC line was cut to length, and advanced through a peel-away sheath such that it's tip resides at the cavoatrial junction. The peel-away sheath a sheath was removed. The catheter was s ecured in place. The catheter was found to flush and aspirate normally.. Sterile dressings were appli ed. No immediate complications were identified. Fluoroscopy time: 0.2 minutes Dose area product: 1 Gycm2 Impression: Successful placement of a right upper extremity PICC line Electronically signed by: Mich Larkin MD (06/11/2021 3:18 PM) [id number]
[2021-06-11] MEDS ORDERED: cefTRIAXone IV Push 2 GM VIAL. IVP ONE (15:30)
[2021-06-11] MEDS ORDERED: cefTRIAXone IV Push 2 GM VIAL. IVP SCH (21:00)
== END 2021-06-11 18:50 | disposition home health service (06) | DRG 872 ==
LOC: 4 NORTH 14:33
PROVIDERS: ADMIT Internal Medicine; ATTEND Internal Medicine
PROC: 02HV33Z Insertion of Infusion Device into Superior Vena Cava, Percutaneous Approach (ICD-10-PCS; principal; 2021-06-11)
PROC: B518ZZA Fluoroscopy of Superior Vena Cava, Guidance (ICD-10-PCS; 2021-06-11)
PROC: B548ZZA Ultrasonography of Superior Vena Cava, Guidance (ICD-10-PCS; 2021-06-11)
DX: A41.81 Sepsis due to Enterococcus (principal); E66.9 Obesity, unspecified; E78.5 Hyperlipidemia, unspecified; I10 Essential (primary) hypertension; K76.0 Fatty (change of) liver, not elsewhere classified; N40.0 Benign prostatic hyperplasia without lower urinary tract symptoms; N41.9 Inflammatory disease of prostate, unspecified; Z20.822 Contact with and (suspected) exposure to COVID-19; R51.9 Headache, unspecified; M19.90 Unspecified osteoarthritis, unspecified site; R16.0 Hepatomegaly, not elsewhere classified; Z82.49 Family history of ischemic heart disease and other diseases of the circulatory system; Z87.442 Personal history of urinary calculi; Z68.31 Body mass index [BMI] 31.0-31.9, adult; Z87.440 Personal history of urinary (tract) infections
CPT/HCPCS: 36415; 36573; 74177; 80048; 80053; 81001; 82550; 85025; 85651; 86140; 87040; 87086; C1751; C1892; J0696; J0878; J1650; J3370; J3490; J7030; J7040; Q9967; U0003; G0378